=== PATIENT | male | born 1985 | race Caucasian/White ===

== ENCOUNTER 2021-05-16 20:38 | Inpatient (IN) ==
[2021-05-16 21:28] LABS: Basophils # (auto) 0.01 K/uL (0-0.2); Basophils % (auto) 0.1 %; Eosinophils # (auto) 0.01 K/uL (0-0.5); Eosinophils % (auto) 0.1 %; Hematocrit (blood only) 45.2 % (42-52); Hemoglobin 15.8 g/dL (14.0-18.0); Immature Granulocytes # (auto) 0.01 K/uL (0.00-0.02); Immature Granulocytes % (auto) 0.1 %; Lymphocytes # (auto) 2.19 K/uL (1.2-3.4); Lymphocytes % (auto) 26.6 %; Mean Corpuscular Hemoglobin 33.8 pg (25-34); Mean Corpuscular Volume 96.6 fL (80-100); Mean Platelet Volume 10.1 fL (7.4-10.4); Monocytes # (auto) 0.36 K/uL (0.11-0.59); Monocytes % (auto) 4.4 %; Neutrophils # (auto) 5.66 K/uL (1.4-6.5); Neutrophils % (auto) 68.7 %; Platelet Count 273 K/uL (130-400); RDW Coefficient of Variation 12.8 % (11.5-14.5); RDW Standard Deviation 44.9 fL (36.4-46.3); Red Blood Count 4.68 M/uL (4.7-6.1); White Blood Count 8.24 K/uL (4.8-10.8)
--- NOTE | 2021-05-16 21:35 | XRay Report ---
XR chest 1V not portable CLINICAL HISTORY: weakness TECHNIQUE: Single frontal radiograph of the chest was obtained. Comparison: None available at the time of this dictation. FINDINGS: No lines and tubes are seen. The cardiomediastinal silhouette is normal. The lungs are clear. No evid ence of pleural effusion or pneumothorax. IMPRESSION: No acute chest disease. ACT 112: Negative or not required by law. Electronically signed by: Rafael Mcginnis M.D. 05/16/2021 9:33 PM
[2021-05-16 21:49] LABS: Troponin I < 0.03 ng/ml (0-0.04)
[2021-05-16 21:50] LABS: Alanine Aminotransferase 26 U/L (7-52); Albumin Globulin Ratio 1.8 (0.9-2); Albumin Level 4.9 gm/dl (3.4-5.0); Alkaline Phosphatase 61 U/L (34-104); Anion Gap 11 (3-11); Aspartate Aminotransferase 25 U/L (13-39); BUN Creatinine Ratio 11.7 (10-20); Bilirubin,Total 0.6 mg/dl (0.2-1.0); Blood Urea Nitrogen 15 mg/dl (6-23); Calcium 9.1 mg/dl (8.5-10.1); Carbon Dioxide 26 mmol/L (21-32); Chloride 105 mmol/L (98-107); Creatinine Clr Calc Pharmacy 84.8 ml/min; Est GFR (African American) 84.7 ml/min; Globulin 2.7 gm/dl (2.5-4.0); Glucose 86 mg/dl (70-99(Fasting)); Potassium 4.2 mmol/L (3.5-5.1); Sodium 142 mmol/L (136-145); Total Protein 7.6 gm/dl (6.0-8.3)
[2021-05-16] MEDS ORDERED: SODIUM CHLORIDE 0.9% 1000ML 1,000 ML IV ONE ×2 (22:00)
[2021-05-16 22:35] LABS: D Dimer < 190 ug/L FEU (0-500)
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
--- NOTE | 2021-05-16 22:39 | CT Scan Report ---
CT head/brain wo con CLINICAL HISTORY: AMS Technique: Contiguous axial CT images of the head were acquired from the base of the skull to the madai derek without intravenous contrast administration. Images were viewed in brain, subdural and [facility]. Automated dose lowering techniques and/or adjustment according to patient size were utilized for this exam. Comparison: None available at the time of this dictation. Findings: The ventricles, basal cisterns, and cerebral sulci are normal. There is no acute intracranial hemorrh age or evidence of acute territorial infarction. Neither mass effect, shift of the midline structures , nor abnormal extra-axial fluid collections are shown. Imaged portions of the paranasal sinuses and mastoid air cells are clear. The orbits appear normal. There are no acute fractures of the calvaria or scalp swelling. Impression: No acute intracranial hemorrhage, no evidence of acute territorial infarction or other acute intracra nial disease process. ACT 112: Negative or not required by law. Electronically signed by: Rafael Mcginnis M.D. 05/16/2021 10:38 PM
[2021-05-16 22:42] LABS: Lyme Ab IgG w/WB Rflx Negative (Negative); Lyme Ab IgM w/WB Rflx Negative (Negative)
[2021-05-16] MEDS ORDERED: ONDANSETRON INJ 2 MG/ML 2 ML VIAL ONE (23:23)
[2021-05-16] MEDS ORDERED: ONDANSETRON INJ 2 MG/ML 2 ML VIAL IV STA (23:47)
[2021-05-17] MEDS ORDERED: GADOBUTROL 65ML VIAL IV ONE (00:21)
[2021-05-17] MEDS ORDERED: SODIUM CHLORIDE 0.9% 1000ML 1,000 ML IV ONE ×2 (01:19→02:07)
--- NOTE | 2021-05-17 04:04 | History & Physical Report ---
Date of Service May 17, 2021 Assessment & Plan (1) Acute hypotension: Plan: 35yo male with no significant past medical history presenting from home with global amnesia, question of syncope and hypotension in the ER. Patient has received 4L of crystalloid resuscitation. Blood pressure presently 90/54. Etiology unclear - patient does not display evidence of infection (SIRS 0/4, no complaints consistent with such), seems to be well hydrated. Normal H/H with no obvious bleeding. No history of VTE, d-dimer is negative and PERC score = 0. MRI brain obtained due to syncope, family history of MS. Study read per STAT- rad with no acute intracranial findings. -Admit to PCU -Check random cortisol -Check procalcitonin -Check 2d echo Plan: F/E/N - LR at 80mL/hr x 1 liter, electrolytes WNL, check Mg and PO4 x 1, regular diet as tolerated Ppx - Low risk for DVT Code - Full per discussion with patient Dispo -Admit to PCU History of Present Illness Chief Complaint: hypotension Primary Care Provider: NO PCP Kyler Mg is a 35yo C male with no significant past medical history presenting with confusion and hypotension. Patient was in his usual state of health today. He worked out, had some lunch and one beer then went home. He remembers getting dressed and playing with his cat on the floor - last remembers it being around 17:00. He was scheduled to work this evening at 19:00 but didn't show up for work which is very atypical. His colleagues came into evaluate him and found him sleeping on the floor at home. He woke up but was groggy and slightly confused. No additional findings reported. No evidence of seizure activity. In the ER patient hypotensive at 78/34. He was administered 4 liters of NSS. Blood pressure presently 90/54. He denies fever, chills, cough, SOB, abdominal pain, nausea, vomiting, diarrhea, constipation, dysuria, flank pain, rash. Denies prior history of syncope or low blood pressure. No new medications, supplements or OTC. No recreational drug use. He is active - works out very frequently. Denies exertional or post- exertional chest pain, dyspnea or syncope. Reports he is eating and drinking well. No history of blood clots. Lactate = 3.3 ER Course: NSS x 4 liters, Zofran 4mg Allergies Allergy/AdvReac Type Severity Reaction Status Date / Time No Known Allergies Allergy Verified 05/16/21 22:52 Home Medications Medication Instructions Recorded Confirmed Type Lactobacillus acidophilus 10 10,000 mmu cells PO DAILY 05/16/21 05/16/21 History billion cell capsule (Probiotic) creatine monohydrate 1 ea PO Q OTHER DAY 05/16/21 05/16/21 History multivitamin 1 tab PO DAILY 05/16/21 05/16/21 History omega 7-hbt-col-fish oil 1,000 mg 1 cap PO DAILY 05/16/21 05/16/21 History (120 mg-180 mg) capsule (Fish Oil) Past Med/Surg History Medical History (Updated 05/17/21 @ 04:08 by Candis Giang DO) No significant past medical history Surgical History (Updated 05/17/21 @ 04:08 by Candis Giang DO) History of orthopedic surgery Family History (Updated 05/17/21 @ 04:08 by Candis Giang DO) Other Multiple sclerosis Social History Smoking Status: Never smoker Preferred Language: Maltese Feels Safe at Home: Yes Review of Systems Review of Systems: All systems reviewed & are unremarkable except as noted in HPI & below Physical Exam Physical Exam: General: patient resting comfortably, NAD, non-toxic in appearance, AA&O x 4 Skin: warm, dry, intact, no rashes or lesions, multiple tattoos HEENT: NC/AT, PERRL, EOMI, anicteric sclera, conjunctiva without injection, external ear normal to inspection and nontender, nares patent, moist mucus membranes, dentition intact, no oropharyngeal lesions, neck supple, trachea midline, no LAD, no thyromegaly, no JVD Heart: +S1/S2, regular, no m/r/g Lungs: equal air entry bilaterally, no rales/rhonchi/wheezes Abd: +BS, soft, NT/ND, no masses/organomegaly/ascites, no CVA tenderness, no spinal tenderness to percussion Ext: warm, 2+ pulses in UE/LE bilaterally, no clubbing/cyanosis or edema Neuro: nonfocal, patient AA&O x 4, speech intact, no facial droop, moving all extremities on command with equal strength 5/5 Results & Data Results & Data ([facility]) Vital Signs (Past 12 Hours) Vital Signs Temp Pulse Pulse Resp BP BP Pulse Ox 05/17/21 03:30 95 H 18 90/54 L 99 05/17/21 03:00 79 16 89/36 L 97 05/17/21 02:20 82 16 98/52 L 98 05/17/21 01:40 78/34 L 05/17/21 01:11 98 05/17/21 01:00 74 16 91/48 L 96 05/16/21 23:12 73 16 112/62 98 05/16/21 20:43 36.7 C 83 20 118/75 97 Laboratory Results Laboratory Results WBC 8.24 K/uL (4.8-10.8) 05/16/21 21:10 RBC 4.68 M/uL (4.7-6.1) L 05/16/21 21:10 Hgb 15.8 g/dL (14.0-18.0) 05/16/21 21:10 Hct 45.2 % (42-52) 05/16/21 21:10 MCV 96.6 fL (80-100) 05/16/21 21:10 MCH 33.8 pg (25-34) 05/16/21 21:10 MCHC 35.0 g/dL (32-36) 05/16/21 21:10 RDW Std Deviation 44.9 fL (36.4-46.3) 05/16/21 21:10 RDW Coeff of [place] 12.8 % (11.5-14.5) 05/16/21 21:10 Plt Count 273 K/uL (130-400) 05/16/21 21:10 MPV 10.1 fL (7.4-10.4) 05/16/21 21:10 Immature Gran % (Auto) 0.1 % 05/16/21 21:10 Neut % (Auto) 68.7 % 05/16/21 21:10 Lymph % (Auto) 26.6 % 05/16/21 21:10 [place] % (Auto) 4.4 % 05/16/21 21:10 Eos % (Auto) 0.1 % 05/16/21 21:10 Baso % (Auto) 0.1 % 05/16/21 21:10 Neut # (Auto) 5.66 K/uL (1.4-6.5) 05/16/21 21:10 Lymph # (Auto) 2.19 K/uL (1.2-3.4) 05/16/21 21:10 [place] # (Auto) 0.36 K/uL (0.11-0.59) 05/16/21 21:10 Eos # (Auto) 0.01 K/uL (0-0.5) 05/16/21 21:10 Baso # (Auto) 0.01 K/uL (0-0.2) 05/16/21 21:10 Immature Gran # (Auto) 0.01 K/uL (0.00-0.02) 05/16/21 21:10 D-Dimer < 190 ug/L FEU (0-500) 05/16/21 21:10 Sodium 142 mmol/L (136-145) 05/16/21 21:10 Potassium 4.2 mmol/L (3.5-5.1) 05/16/21 21:10 Chloride 105 mmol/L (98-107) 05/16/21 21:10 Carbon Dioxide 26 mmol/L (21-32) 05/16/21 21:10 Anion Gap 11 (3-11) 05/16/21 21:10 BUN 15 mg/dl (6-23) 05/16/21 21:10 Creatinine 1.28 mg/dl (0.6-1.4) 05/16/21 21:10 Est Cr Clr Drug Dosing 84.8 ml/min 05/16/21 21:10 Est GFR ( Amer) 84.7 ml/min 05/16/21 21:10 Est GFR (Non-Af Amer) 73.0 ml/min 05/16/21 21:10 BUN/Creatinine Ratio 11.7 (10-20) 05/16/21 21:10 Glucose 86 mg/dl (70-99(Fasting)) 05/16/21 21:10 Lactate 3.3 mmol/L (0.4-2.0) H* 05/17/21 02:47 Calcium 9.1 mg/dl (8.5-10.1) 05/16/21 21:10 Total Bilirubin 0.6 mg/dl (0.2-1.0) 05/16/21 21:10 AST 25 U/L (13-39) 05/16/21 21:10 ALT 26 U/L (7-52) 05/16/21 21:10 Alkaline Phosphatase 61 U/L (34-104) 05/16/21 21:10 Total Creatine Kinase 182 U/L (30-223) 05/16/21 21:10 Troponin I < 0.03 ng/ml (0-0.04) 05/17/21 02:47 Total Protein 7.6 gm/dl (6.0-8.3) 05/16/21 21:10 Albumin 4.9 gm/dl (3.4-5.0) 05/16/21 21:10 Globulin 2.7 gm/dl (2.5-4.0) 05/16/21 21:10 Albumin/Globulin Ratio 1.8 (0.9-2) 05/16/21 21:10 TSH 1.166 uIu/ml (0.300-4.500) 05/16/21 21:10 Lyme Disease IgG Ab Negative (Negative) 05/16/21 20:54 Lyme Disease IgM Ab Negative (Negative) 05/16/21 20:54 SARS-CoV-2, RNA, NAAT NEGATIVE (NEGATIVE) 05/17/21 02:15 Impressions Chest X-Ray 05/16/21 20:54 XR chest 1V not portable CLINICAL HISTORY: weakness TECHNIQUE: Single frontal radiograph of the chest was obtained. Comparison: None available at the time of this dictation. FINDINGS: No lines and tubes are seen. The cardiomediastinal silhouette is normal. The lungs are clear. No evidence of pleural effusion or pneumothorax. IMPRESSION: No acute chest disease. ACT 112: Negative or not required by law. Electronically signed by: Rafael Mcginnis M.D. 05/16/2021 9:[address] 05/16/21 22:00 CT head/brain wo con CLINICAL HISTORY: AMS Technique: Contiguous axial CT images of the head were acquired from the base of the skull to the vertex without intravenous contrast administration. Images were viewed in brain, subdural and bone windows. Automated dose lowering techniques and/or adjustment according to patient size were utilized for this exam. Comparison: None available at the time of this dictation. Findings: The ventricles, basal cisterns, and cerebral sulci are normal. There is no acute intracranial hemorrhage or evidence of acute territorial infarction. Neither mass effect, shift of the midline structures, nor abnormal extra-axial fluid collections are shown. Imaged portions of the paranasal sinuses and mastoid air cells are clear. The orbits appear normal. There are no acute fractures of the calvaria or scalp swelling. Impression: No acute intracranial hemorrhage, no evidence of acute territorial infarction or other acute intracranial disease process. ACT 112: Negative or not required by law. Electronically signed by: Rafael Mcginnis M.D. 05/16/2021 10:38 PM ECG Additional Comments: NSR at 72, nomrla axis, SP=129, OFK=920, incomplete RBBB, EIt=030, no acute ischemic changes Code Status & VTE Plan VTE Prophylaxis Plan VTE Prophylaxis will be ordered: No PG Care Time/CCT Total # of Minutes Spent Total Time Spent with Patient: Total time spent is greater than 50% in coordination of care (as documented) at patient's floor/unit and/or counseling patient: Coding Level of Care Code 87515 Initial Inpt Care Lvl 2 Diagnoses Acute hypotension I95.9
[2021-05-17] MEDS ORDERED: ACETAMINOPHEN 325 MG TAB PO PRN (06:49)
[2021-05-17] MEDS ORDERED: LACTATED RINGER'S 1,000 ML IV SCH (06:49)
[2021-05-17] MEDS ORDERED: ONDANSETRON INJ 2 MG/ML 2 ML VIAL IV PRN (06:49)
--- NOTE | 2021-05-17 07:30 | Magnetic Resonance Report ---
Brain MRI WITH AND WITHOUT CONTRAST HISTORY: Altered mental status, global amnesia TECHNIQUE: Multiplanar multisequence MRI of the brain was performed both before and after the intrave nous administration of contrast. COMPARISON STUDY: Head CT 05/16/2021. FINDINGS: There are no areas of restricted diffusion to suggest acute infarction. The midline structu res are intact. Mild mucosal thickening within the ethmoid air cells and maxillary sinuses. The masto id air cells are clear. The ventricles and sulci are within normal limits for age. There is no mass, hematoma, midline shift. The major vascular flow-voids at the skull base are well maintained. Postcon trast sequences show no areas of abnormal enhancement. IMPRESSION: No acute intracranial abnormality. ACT 112: Negative or not required by law. Electronically signed by: Sincere Aguilar M.D. 05/17/2021 7:29 AM
[2021-05-17 07:49] LABS: Appearance Urine Clear (Clear); Bilirubin Urine Negative (Negative); Blood Urine Negative (Negative); Color Urine Yellow; Glucose Urine UA Negative (Negative); Ketones Urine 2+ (Negative); Leukocyte Esterase Urine Negative (Negative); Nitrite Urine Negative (Negative); Protein Urine Negative (Negative); Specific Gravity Urine 1.022 (1.000-1.030); Urobilinogen Urine Negative (Negative)
[2021-05-17 08:27] LABS: Magnesium 1.6 mg/dl (1.7-2.4); Phosphorus 2.8 mg/dl (2.5-4.9)
[2021-05-17 11:46] LABS: Amphetamines+Metham, Urine Neg (Neg); Barbiturates, Urine Neg (Neg); Benzodiazepine, Urine Neg (Neg); Cocaine, Urine Neg (Neg); MDMA (Ecstacy), Urine Neg (Neg); Methadone, Urine Neg (Neg); Opiate, Urine Neg (Neg); Phencyclidine, Urine Neg (Neg)
--- NOTE | 2021-05-17 21:10 | XCELERA ---
[id number]
[2021-05-18 08:04] LABS: Basophils # (auto) 0.01 K/uL (0-0.2); Basophils % (auto) 0.2 %; Eosinophils # (auto) 0.04 K/uL (0-0.5); Eosinophils % (auto) 0.6 %; Hematocrit (blood only) 40.1 % (42-52); Hemoglobin 13.9 g/dL (14.0-18.0); Immature Granulocytes # (auto) 0.01 K/uL (0.00-0.02); Immature Granulocytes % (auto) 0.2 %; Lymphocytes # (auto) 1.94 K/uL (1.2-3.4); Lymphocytes % (auto) 30.5 %; Mean Corpuscular Hemoglobin 33.8 pg (25-34); Mean Corpuscular Hgb Conc 34.7 g/dL (32-36); Mean Corpuscular Volume 97.6 fL (80-100); Mean Platelet Volume 10.3 fL (7.4-10.4); Monocytes % (auto) 12.6 %; Neutrophils # (auto) 3.56 K/uL (1.4-6.5); Neutrophils % (auto) 55.9 %; Platelet Count 205 K/uL (130-400); RDW Coefficient of Variation 12.8 % (11.5-14.5); RDW Standard Deviation 45.9 fL (36.4-46.3); Red Blood Count 4.11 M/uL (4.7-6.1); White Blood Count 6.36 K/uL (4.8-10.8)
[2021-05-18 08:28] LABS: BUN Creatinine Ratio 10.5 (10-20); Calcium 8.7 mg/dl (8.5-10.1); Creatinine Clr Calc Pharmacy 95.2 ml/min; Est GFR (African American) 97.4 ml/min; Magnesium 1.8 mg/dl (1.7-2.4); Potassium 4.1 mmol/L (3.5-5.1)
--- NOTE | 2021-05-18 13:03 | Discharge Summary ---
Date of Service May 18, 2021 Admission HPI Per Admitting Provider Kyler Mg is a 35yo C male with no significant past medical history presenting with confusion and hypotension. Patient was in his usual state of health today. He worked out, had some lunch and one beer then went home. He remembers getting dressed and playing with his cat on the floor - last remembers it being around 17:00. He was scheduled to work this evening at 19:00 but didn't show up for work which is very atypical. His colleagues came into evaluate him and found him sleeping on the floor at home. He woke up but was groggy and slightly confused. No additional findings reported. No evidence of seizure activity. In the ER patient hypotensive at 78/34. He was administered 4 liters of NSS. Blood pressure presently 90/54. He denies fever, chills, cough, SOB, abdominal pain, nausea, vomiting, diarrhea, constipation, dysuria, flank pain, rash. Denies prior history of syncope or low blood pressure. No new medications, supplements or OTC. No recreational drug use. He is active - works out very frequently. Denies exertional or post- exertional chest pain, dyspnea or syncope. Reports he is eating and drinking well. No history of blood clots. Lactate = 3.3 ER Course: NSS x 4 liters, Zofran 4mg Principal Diagnosis 1. Syncope 2. Hypertensionlikely related to dehydration Discharge Exam General: Resting comfortably in his hospital bed. He does not appear ill or toxic NAD. HEENT: Head is AT/NC buccal mucosa is moist and pink Neck: No JVD. Negative hepatojugular reflex Cardiac: RRR without M/G/R Lungs: CTA without W/R/R Abdomen: Normoactive X4. Soft and nontender in all quadrants. 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 05/17/21 23:02 MR brain wo/w con Urgent IMPRESSION: No acute intracranial abnormality. Hospital Course (1) Syncope and collapse: Mr. Mg is a 35 y/o WM who is physically fit and active, who presented to the ED after being found down by a co-worker. 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 After this, he went on a 4 mile run. [place] through the run, he met up with a friend and had a small whiskey. Continued on the run and after, went to meet up with a friend where he had a beer. Was going to get lunch but started to not feel "the greatest" and proceeded him. He remembers making some stir engle (however, did not eat any of this) and got in the shower to get ready for his paint grinder. Getting the shower is the last thing that he recalled. Apparently, didn't show up for work which is why a coworker came to check on him. He was found down and EMS services were summoned. His BP was low at 74/34. He was dressed (although doesn't remember getting dressed or anything after his shower). Did not appear to have any head trauma. No loss of bowel/blader function. No tongue trauma. -aggressively hydrated and BP improved (and has since remained stable without IVF) -lactic acid level was elevated (3.8) WITHOUT S/S sepsis or infection --afebrile, normal WBC count, normal procal/ESR/CRP -UA not grossly infected -prolactin level normal -troponin negative -cortisol level WNL -covid test negative -Lyme negative -UDS negative -CXR normal -CT of the head unremarkable -MRI of the head unremarkable -echo WNL (no vegetation, EF 65-70%) -no arrhythmia on the monitor -mag low at 1.6. Now 1.8 after supplementation -I suspect the lack of sleep in addition extensive physical activity and 2 drinks (while on his run) are to blame as no other obvious source identified. His BP was likely low in related to dehydration and this is what caused his syncope. -at this time, he has been medically and HD stable for D/C to home -will arrange for a holter monitor (to be worn in his environment) to further look for any arrhythmia. -FU with PCP: 7-10 days -return to the ED for new or worsening symptoms D/C to home today Encourage plenty of sleep/rest and adequate caloric intake/hydration Total Time Total Time Spent Total Time Spent (In Minutes): 30 Discharge Plan Discharge Items Patient Disposition: Home - Self-Care Reason For Visit: HYPOTENSION Discharge Diagnosis: 1. Hypotension- presumed dehydration 2. Syncope- exact etiology unclear but suspect due to #1 Activity: Resume your previous activity Non-emergency contact: Primary Care Provider Call non-emergency contact if: you have any medication questions Follow-up/Referrals: PCP,NO [Primary Care Provider] - Diet: Regular Diet Comment: push your fluids Addtl Attending Provider Instructions: Diet: make sure that you are eating enough calories to keep up with your active lifestyle. Push your fluids Activity: as tolerated. Make sure you are getting plenty of rest (especially with your rotating schedule to accommodate paint grinder) Recommendations: - you were hospitalized after being found down - your blood pressure was low - you were worked up pretty thoroughly and with no abnormalities - your blood pressure was low (without any obvious infections seen) - in talking with you, I suspect that you pushed yourself physically (lack of sleep, excessive working out, drinking) - Can return to work on Wednesday (without restrictions) - Recommend a Holter Monitor (ideally will be arranged on Wednesday)-- someone will call you tomorrow with this appointment - return to the ED for new or worsening symptoms Pending Studies at Discharge: No Stand-Alone Forms: [email or web address], Work/School Release, Smoking Cessation Medications and DC Order Prescriptions: Continued multivitamin Tablet 1 tab PO DAILY RF: 0 creatine monohydrate Powder 1 ea PO Q OTHER DAY RF: 0 omega 9-hgn-fyf-fish oil [Fish Oil] 1,000 mg (120 mg-180 mg) Capsule 1 cap PO DAILY RF: 0 Probiotic 10 billion cell Capsule 10,000 mmu cells PO DAILY RF: 0 Discharge Orders: Discharge Order (Routine); Ordered 05/18/21 Ordered By: Arline Mckoen Admission Data Admit Date/Time: 05/17/21 03:55 Attending Provider: Mulugeta Connell Admit Provider: Candis Giang Primary Care Provider: PCP,NO Other Providers: Mulugeta Connell. Other Interventions: Discharge Summary Assessment (RN) Last Done: 05/18/21 09:23 Supervising Physician Co-Signing Physician Notes I supervised Arline Mckeon PA-C on the care of this patient. I interviewed and examined the patient independently of her. The plan is as written in her note except for any following changes/exceptions: None Doing well today. No episodes of syncope in the hospital. Encouraged to maintain good hydration. Will get Holter monitor. Coding Level of Care Code 63368 OBS Care - Discharge Diagnoses Syncope and collapse R55
--- NOTE | 2021-05-18 18:08 | Electrocardiogram Report ---
Test Reason : Blood Pressure : / mmHG Vent. Rate : 072 BPM Atrial Rate : 072 BPM P-R Int : 122 ms QRS Dur : 100 ms QT Int : 414 ms P-R-T Axes : 050 070 055 degrees QTc Int : 453 ms Normal sinus rhythm Normal ECG No previous ECGs available Confirmed by Gualberto Harrison ([id number]) on 05/18/2021 6:08:04 PM Referred By: REFERRED SELF Confirmed By:Gualberto Harrison
--- NOTE | 2021-05-18 18:16 | Electrocardiogram Report ---
Test Reason : Blood Pressure : / mmHG Vent. Rate : 080 BPM Atrial Rate : 080 BPM P-R Int : 126 ms QRS Dur : 096 ms QT Int : 428 ms P-R-T Axes : 057 056 049 degrees QTc Int : 493 ms Normal sinus rhythm Incomplete right bundle branch block Prolonged QT Abnormal ECG When compared with ECG of 16-MAY-2021 21:03, (unconfirmed) No significant change Confirmed by Gualberto Harrison ([id number]) on 05/18/2021 6:16:02 PM Referred By: REFERRED SELF Confirmed By:Gualberto Harrison
== END 2021-05-18 10:15 | disposition home or self-care (01) | DRG 312 ==
LOC: ED 20:38 → EDINP 05-17 03:55 → SUATTDRO 05-17 03:55 → 2S 05-17 06:43